=== PATIENT | female | born 1975 | race Caucasian/White ===

== ENCOUNTER 2020-05-17 09:59 | Emergency (ER) | payer BC, OTHER ==
[2020-05-17] MEDS ORDERED: methylPREDNISolone SOD SUCCI 125 MG/2 ML VIAL IM ONE (11:18)
--- NOTE | 2020-05-17 11:24 | ED ---
Skin/Abscess/FB HPI - General Source: patient Mode of arrival: ambulatory Limitations: no limitations - History of Present Illness MD complaint: discoloration Location: L hand, R hand Severity scale (1-10): 7 Quality: other (tightness) Consistency: constant Improves with: cold therapy Worsens with: movement Context: recent antibiotic Associated symptoms: denies other symptoms Treatments Prior to Arrival: other (ice) <Mic Juarez - Last Filed: 05/17/20 12:34> <Genesis Workman - Last Filed: 05/18/20 23:02> - General Chief complaint: Skin/Abscess/Foreign Body Stated complaint: hand swelling/pain Time Seen by Provider: 05/17/20 11:01 - History of Present Illness Initial comments: 44-year-old white female patient presents to the emergency room with bilateral hand pain, swelling, and redness that started last night. Patient denies injury. States hands feel tight and swollen with some tingling due to swelling. Patient states that this happened before in 2017 was told that was autoimmune in nature. Given a prescription at that time for steroids and an injection in her "butt" by her primary care doctor. Patient has pictures of rash dated 2017 which resembles current rash. Patient states was placed on antibiotics by her dentist recently but has no other systemic signs reaction and doesn't feel is related. (Mic Juarez) - Related Data Home Medications Medication Instructions Recorded Confirmed Sertraline [Zoloft] 1 tab PO HS 08/15/15 05/17/20 Previous Rx's Medication Instructions Recorded Acetaminophen-Codeine 300-30mg 1 tab PO Q6H PRN #30 tablet 08/15/15 [Tylenol #3] Ibuprofen [Motrin] 600 mg PO Q6HR PRN #30 tab 08/15/15 Ibuprofen [Motrin] 600 mg PO Q8HR PRN #20 tab 05/17/20 predniSONE [Deltasone] 20 mg PO BID 5 Days #10 tab 05/17/20 Allergies Allergy/AdvReac Type Severity Reaction Status Date / Time No Known Allergies Allergy Verified 05/17/20 10:27 Review of Systems ROS Other: All systems not noted in ROS Statement are negative. <Mic Juarez - Last Filed: 05/17/20 12:34> ROS Other: All systems not noted in ROS Statement are negative. <Genesis Workman Juan A - Last Filed: 05/18/20 23:02> ROS Statement: Those systems with pertinent positive or pertinent negative responses have been documented in the HPI. Past Medical History Past Medical History: No Reported History History of Any Multi-Drug Resistant Organisms: None Reported Past Surgical History: No Surgical Hx Reported Past Psychological History: Anxiety, Depression Smoking Status: Current some day smoker Past Alcohol Use History: Occasional Past Drug Use History: None Reported <Mic Juarez - Last Filed: 05/17/20 12:34> General Exam Limitations: no limitations General appearance: alert, in no apparent distress Head exam: Present: atraumatic, normocephalic, normal inspection Eye exam: Present: normal appearance, PERRL, EOMI. Absent: scleral icterus, conjunctival injection, periorbital swelling Neck exam: Present: normal inspection. Absent: tenderness, meningismus, lymphadenopathy Respiratory exam: Present: normal lung sounds bilaterally. Absent: respiratory distress, wheezes, rales, rhonchi, stridor Cardiovascular Exam: Present: regular rate, normal rhythm, normal heart sounds. Absent: systolic murmur, diastolic murmur, rubs, gallop, clicks GI/Abdominal exam: Present: soft, normal bowel sounds. Absent: distended, tenderness, guarding, rebound, rigid Extremities exam: Present: tenderness, normal capillary refill, joint swelling Left Hand Wrist exam: Present: tenderness, swelling, erythema Right Hand Wrist exam: Present: tenderness, swelling, erythema (b/l cap refill less than 2 seconds to each finger) Neurological exam: Present: alert, oriented X3, CN II-XII intact Psychiatric exam: Present: normal affect, normal mood Skin exam: Present: warm, dry, intact, normal color. Absent: rash <Mic Juarez - Last Filed: 05/17/20 12:34> Course Vital Signs 05/17/20 05/17/20 05/17/20 10:23 11:45 12:00 Temperature 98.7 F Pulse Rate 79 80 72 Respiratory 18 20 18 Rate Blood Pressure 174/120 168/112 140/110 O2 Sat by Pulse 99 99 Oximetry 05/17/20 05/17/20 12:26 12:50 Temperature 98.2 F Pulse Rate 71 Respiratory 20 Rate Blood Pressure 148/88 O2 Sat by Pulse 99 Oximetry Medical Decision Making <Mic Juarez - Last Filed: 05/17/20 12:34> <Genesis Workman - Last Filed: 05/18/20 23:02> - Medical Decision Making Patient says this exact same thing happened to her in 2017 and was seen by [facility] doctor and given a shot of steroids which resolved the problem. Patient's blood pressure down to 148/88. States normally he has had blood pressure when she sees her primary care doctor or, so the hospital. Has been diagnosed with hypertension. States recently he had a physical exam and lab work by her primary care doctor. Patient comfortable with getting another dose of steroids and a prescription for prednisone, in addition to following up with primary care doctor. Case discussed with Dr. Workman who was agreeable to this plan of care. Patient will be directed to return if worsening symptoms or increased pain. (Mic Juarez) I was available for consultation in the emergency department. The history and physical exam were done by the midlevel provider. I was consulted for this patients care. I reviewed the case with the midlevel provider and based on their presentation of the patient, I agree with the assessment, medical decision making and plan of care as documented. Chart was dictated using GENEL[employer] dictation software. Attempts were made to correct any dictation errors however some typographical errors may persist. (Genesis Workman) Disposition Is patient prescribed a controlled substance at d/c from ED?: No Time of Disposition: 12:36 <Mic Juarez - Last Filed: 05/17/20 12:34> <Genesis Workman - Last Filed: 05/18/20 23:02> Clinical Impression: Bilateral hand swelling Disposition: HOME SELF-CARE Condition: Good Additional Instructions: Follow-up with your primary care doctor within the next week. Return if rash worsens or increased pain. Prescriptions: predniSONE [Deltasone] 20 mg PO BID 5 Days #10 tab Ibuprofen [Motrin] 600 mg PO Q8HR PRN #20 tab PRN Reason: Pain Referrals: Drew Cruz DO [STAFF PHYSICIAN] - 1-2 days
[2020-05-17] MEDS ORDERED: IBUPROFEN 600 MG TAB PO STA (11:41)
[2020-05-17 12:26] VITALS: BP 148/88; PULSE 71; RESP 20
[2020-05-17 13:19] VITALS: TEMP 98.2
== END 2020-05-17 12:50 | disposition home or self-care (01) ==
LOC: EC 09:59
DX: M79.89 Other specified soft tissue disorders (principal); F17.200 Nicotine dependence, unspecified, uncomplicated; F41.9 Anxiety disorder, unspecified; F32.9 Major depressive disorder, single episode, unspecified; Z79.899 Other long term (current) drug therapy
CPT/HCPCS: 99283; 96372; J2930

== ENCOUNTER → 2024-05-19 | Outpatient (CLI) | payer OTHER ==
--- NOTE | 2024-05-20 07:21 | MM ---
Reason for Exam: Screening (asymptomatic). Last mammogram was performed 10 year(s) and 4 month(s) ago. Patient History: Menarche at age 13. First Full-Term at age 24. Patient has history of breast feeding. Patient used Hormonal Contraceptives for 10 years. Last menstrual period: 04/18/2024 Risk Values: Adelina 5 year model risk: 0.8%. NCI Lifetime model risk: 8.4%. Prior Study Comparison: 01/09/2014 Bilateral MG diagnostic mammo w CAD VIK - 2, [facility]. Tissue Density: The breasts are heterogeneously dense, which may obscure small masses. Findings: Analyzed By CAD. Benign-appearing bilateral axillary lymph nodes are present. There is no suspicious group of microcalcifications or suspicious mass in either breast. Overall Assessment: Negative, BI-RAD 1 Management: Screening Mammogram of both breasts in 1 year. . Patient should continue monthly self-breast exams. A clinical breast exam by your physician is recommended on an annual basis. This exam should not preclude additional follow-up of suspicious palpable abnormalities. Note on Adelina scores and lifetime risk: 1. A Adelina score greater than 3% is considered moderate risk. If this is the case, consider specialist referral to assess eligibility for a risk reducing agent. 2. If overall lifetime risk for the development of breast cancer is 20% or higher, the patient may qualify for future screening with alternating mammogram and breast MRI. [facility], , 05/20/2024 7:18 AM. Electronically signed and approved by: Kaleb Patrick M.D.
== END | disposition home or self-care (01) ==
LOC: RADMAMWWP 16:19
PROVIDERS: ATTEND Family Medicine
DX: Z12.31 Encounter for screening mammogram for malignant neoplasm of breast (principal); R92.333 Mammographic heterogeneous density, bilateral breasts; Z92.0 Personal history of contraception
CPT/HCPCS: 77067